=== PATIENT | female | born 1950 | race Caucasian/White ===

== ENCOUNTER 2016-11-14 12:02 | Outpatient (CLI) | payer MEDICARE, OTHER ==
[2016-11-14 12:32] LABS: #Basophils 0.1 thou/uL (0.0-0.2); #Eosinphils 0.1 thou/uL (0.0-0.7); #Lymphocytes 1.1 thou/uL (1.20-3.40); #Monocytes 0.2 thou/uL (0.11-0.59); %Basophils 1.1 % (0.0-1.0); %Eosinophils 2.3 % (0.0-10.0); %Lymphocytes 24.5 % (21.0-51.0); %Monocytes 4.6 % (0.0-10.0); %Neutrophils 67.4 % (42.0-75.0); Mean Corpuscular HGB CONC 31.8 g/dL (32.0-36.0); Mean Corpuscular Hemoglobin 32.4 pg (27.0-31.0); Mean Corpuscular Volume 101.9 fl (81.0-99.0); Platelet Count 207 thou/uL (130-400); RBC Distribution Width 14.9 % (11.5-14.5); White Blood Cell (WBC) Count 4.4 thou/uL (4.8-10.8)
[2016-11-14 12:50] LABS: ALT (SGPT) 9 U/L (0-55); AST (SGOT) 11 U/L (5-34); Alkaline Phosphatase 65 U/L (40-150); Anion Gap 15 mmol/L (10-20); BUN (Urea Nitrogen) 13 mg/dL (9.8-20.1); Bilirubin, Total 0.7 mg/dL (0.2-1.2); Calc. Creatinine Clearance 0 mL/min (70-130); Calcium 8.7 mg/dL (7.8-10.44); Carbon Dioxide 27 mmol/L (23-31); Cardiac Risk 4.2 (Less than 4.5); Chloride 104 mmol/L (98-107); Cholesterol 227 mg/dL (< 200 Desired); Estimated GFR-MDRD 70; Globulin 2.7 g/dL (2.4-3.5); Glucose 101 mg/dL (80-115); HDL Cholesterol 54 mg/dL (>60 Neg Risk); LDL Cholesterol, Calculated 142 mg/dL; Potassium 4.2 mmol/L (3.5-5.1); Protein, Total 6.7 g/dL (5.8-8.1); Sodium 142 mmol/L (136-145); Triglycerides 156 mg/dL (Less than 150)
== END 2016-11-14 12:03 | disposition home or self-care (01) ==
LOC: MADLABBHPM 12:02
PROVIDERS: ATTEND Family Medicine
DX: E03.9 Hypothyroidism, unspecified (principal)
CPT/HCPCS: 36415; 80053; 80061; 84443; 85025

== ENCOUNTER 2017-05-22 12:06 | Outpatient (CLI) | payer MEDICARE ==
[2017-05-23 12:49] LABS: Bacteria/HPF Rare-Few HPF (None Seen); Bilirubin Negative (Negative); Blood, Urine Trace (Negative); Clarity Clear (Clear); Glucose, Urine (Dipstick) Negative (Negative); Leukocyte Trace (Negative); Nitrite Negative (Negative); Protein, Urine (Dipstick) Negative (Neg-Trace); pH, Urine 6.5 (5.0-9.0)
== END 2017-05-22 12:07 | disposition home or self-care (01) ==
LOC: MADLABBHPM 12:06
PROVIDERS: ATTEND Family Medicine
DX: E03.9 Hypothyroidism, unspecified (principal)
CPT/HCPCS: 36415; 81001; 84443

== ENCOUNTER 2022-04-25 16:13 | Emergency (ER) | payer OTHER | END 2022-04-25 17:08 | disposition home or self-care (01) | LOC: MADERS 16:13 | DX: L73.9 Follicular disorder, unspecified (principal); E03.9 Hypothyroidism, unspecified; Z79.82 Long term (current) use of aspirin; Z79.899 Other long term (current) drug therapy | CPT/HCPCS: 87070; 87077; 87186; 87205; 99283 ==

== ENCOUNTER 2024-12-23 20:51 | Emergency (ER) | payer MEDICARE, OTHER ==
[2024-12-23] MEDS ORDERED: Boostrix 0.5 ML (Tdap) VIAL (>/=7 yrs of age) ONE (20:58)
[2024-12-23] MEDS ORDERED: Bacitracin 1 PK ONE (20:58)
[2024-12-23] MEDS ORDERED: Lidocaine 1% w/Epinephrine 1:100K 20 ML VIAL ONE (20:58)
== END 2024-12-23 21:50 | disposition home or self-care (01) ==
LOC: MADERS 20:51
DX: S01.01XA Laceration without foreign body of scalp, initial encounter (principal); E03.9 Hypothyroidism, unspecified; Z23 Encounter for immunization; Z79.890 Hormone replacement therapy; W01.0XXA Fall on same level from slipping, tripping and stumbling without subsequent striking against object, initial encounter
CPT/HCPCS: 70450; 90471; 90715

== ENCOUNTER 2025-10-13 15:29 | Emergency (ER) | payer MEDICARE, OTHER | END 2025-10-13 16:45 | disposition home or self-care (01) | LOC: MADERS 15:29 | DX: S93.602A Unspecified sprain of left foot, initial encounter (principal); S40.022A Contusion of left upper arm, initial encounter; E03.9 Hypothyroidism, unspecified; Z79.890 Hormone replacement therapy; W19.XXXA Unspecified fall, initial encounter | CPT/HCPCS: 99283 ==